=== PATIENT | female | born 1955 ===

== ENCOUNTER → 2023-09-09 02:32 | Outpatient (CLI) | payer MEDICARE, BC, SELFPAY ==
--- NOTE | 2023-09-09 | DI.MRI_ITS ---
Exam(s) MR UPPER JOINT RT WO EXAM: MR UPPER JOINT RT WO CLINICAL HISTORY: RT RTC TENDINITIS,BURSITIS,PAIN,IMPINGEMENT SYNDROME,M25.511,M75.81 TECHNIQUE: Multiplanar multisequence MRI of the shoulder was performed. COMPARISON: CR XR SHOULDER RIGHT (GENERIC) from 06/23/2023 FINDINGS: MARROW:There is no evidence of fracture, Hill-Sachs deformity, nor ominous osseous lesions. GLENOHUMERAL JOINT: There is a moderate size glenohumeral joint effusion. No loose intra-articular b odies evident. There is also abundant fluid in the subacromial bursa. No large chondral defects. N o degenerative subarticular cysts. However, there is a tiny osteophyte on the inferior articular leonard face of the humeral head. ROTATOR CUFF MECHANISM: AC JOINT/ACROMIUM: There are degenerative changes in the AC joint. The acromial side of the AC joint is downsloping causing impingement.. There is no evidence of os acromiale. Supraspinatus: There a full-thickness tear of the supraspinatus tendon approximately 1 centimeter pro ximal to the greater tuberosity. There is fluid signal evident through the entire tear and into the subacromial-subdeltoid bursa. Infraspinatus: There is also significant tendinitis signal in the infraspinatus. Partial thickness a rticular side surface tearing evident in this structure. No muscle atrophy. Teres Minor: Intact. No evidence of tear. Subscapularis/anterior cuff: No high-grade tear but there is some tendinitis signal in the upper aspe ct of the subscapularis tendon anterior to the lesser tuberosity. BICEPS TENDON: Exhibits normal position within the intertubercular groove. Some increased signal and attenuation of the intra-articular aspect of the tendon is noted. There is abundant fluid in the biceps tendon sheath. LABRUM: There is tearing in the superior labrum posterior to the biceps insertion. Posterior labrum appears intact. Signal abnormality also evident in the anterior labrum above the midline which exhib its some tearing. The anterior-inferior aspect of the labrum appears intact. There is no periosteal stripping at this level. The inferior labrum appears intact. The inferior glenohumeral ligament is thin but does not exhibit high-grade tear. IMPRESSION: 1. There is a full-thickness tear of the supraspinatus tendon. This is located approximately 1 cm ab ove the greater tuberosity. The width of the tear is 1.5 cm. The AP measurement of the tear is appr oximately 8 mm. There is abundant fluid in the overlying subacromial bursa. Impingement in the sub acromial arch as described above. 2. Partial thickness tearing in the infraspinatus. Tendinitis signal is evident in the anterior cuff -subscapularis just anterior to the lesser tuberosity. 3. There is tearing in the superior labrum as well as in the anterior labrum above the midline. The biceps tendon in the intra-articular compartment is thin but without high-grade tear and there is no displacement of the biceps tendon from the intertubercular groove. There is prominent fluid in the b iceps tendon sheath which is in continuity with the glenohumeral joint effusion. 4. Mild degenerative change in the glenohumeral joint. Moderate glenohumeral joint effusion. No ob vious loose intra-articular bodies. DATA REPOSITORY:
== END ==
PROVIDERS: PCP Family Medicine; Visit Provider Physician Assistant
DX: M75.121 Complete rotator cuff tear or rupture of right shoulder, not specified as traumatic (principal)
CPT/HCPCS: 73221